=== PATIENT | female | born 1985 | race Hispanic/Latino ===

== ENCOUNTER 2019-02-04 11:38 | Emergency (ER) | payer OTHER, SELFPAY ==
[2019-02-04 11:47] VITALS: BP 134/78; PULSE 82; RESP 18; TEMP 36.7; O2SAT 98; BMI 38.6
--- NOTE | 2019-02-04 11:55 | DI.RAD.S_ITS ---
PROCEDURE: XR LUMBAR SPINE 2-3V INDICATIONS: back pain TECHNIQUE: 3 views of the lumbar spine were acquired. COMPARISON: None. FINDINGS: Bones: There are 5 lumbar-type vertebral bodies. The lowest intervertebral disk space is designated as L5-S1. The vertebral body heights are well-maintained without evidence to suggest an acute compression fracture. The bone mineralization is within normal limits. Straightening of the normal lumbar lordosis is present without spondylolisthesis. There are mild degenerative changes involving the lower lumbar facet joints. Intervertebral disc heights are relatively well-maintained throughout the lumbar spine. Soft tissues: The soft tissues of the imaged abdomen and pelvis are within normal limits. IMPRESSION: Mild degenerative changes of the lower lumbar spine. No fractures are evident. Dictated by: Foster Perez M.D. on 02/04/2019 at 11:42 Approved by: Foster Perez M.D. on 02/04/2019 at 11:43
--- NOTE | 2019-02-04 11:55 | DI.RAD.S_ITS ---
PROCEDURE: XR HIP W PEL IF DONE RT 2V INDICATIONS: pain TECHNIQUE: 2 views of the hip were acquired. COMPARISON: None. FINDINGS: Bones: No fractures or dislocations. No suspicious bony lesions. The visualized pelvic ring appears intact. A sclerotic lesion involving the proximal aspect of the iliac bone is identified, which likely represents a bone island. There are moderate degenerative changes of the pubis symphysis with associated parasymphyseal sclerosis in the erosive changes or degenerative cystic change at the level of the jointline. There may be mild degenerative changes of the lower lumbar spine. Soft tissues: No suspicious soft tissue calcifications or masses. IMPRESSION: 1. No acute fracture of the right hip. 2. Moderate degenerative changes of the pubis symphysis has appearances most suggestive of osteitis pubis. Please correlate clinically. Dictated by: Foster Perez M.D. on 02/04/2019 at 11:36 Approved by: Foster Perez M.D. on 02/04/2019 at 11:38
[2019-02-04] MEDS: LIDOCAINE PATCH 1 EACH ADH..PATCH TOP (12:18)
[2019-02-04] MEDS: CYCLOBENZAPRINE 10 MG TABLET PO (12:18)
[2019-02-04] MEDS: HYDROCODONE/ACET 5/325 TABLET 1 TAB PO ×2 (12:18→13:01)
[2019-02-04 13:12] VITALS: BP 113/70; PULSE 63; RESP 16; O2SAT 100
[2019-02-04] MEDS: KETOROLAC 60 MG/2 ML VIAL IM (14:26)
[2019-02-04 14:38] VITALS: BP 103/59; PULSE 61; RESP 18; O2SAT 98
--- NOTE | 2019-02-04 15:14 | ED_ITS ---
HPI - Back Pain/Injury <SUJATA Baugh- - Last Filed: 02/04/19 15:21> General Chief Complaint: Back Pain/Injury Stated Complaint: Hip and back pain Time Seen by Provider: 02/04/19 11:44 Source: patient and family Mode of arrival: Wheelchair Limitations: no limitations History of Present Illness HPI Narrative: The patient is a 33-year-old female nonsmoker with history of 3 sections who presents with a chief complaint of right hip pain and low back pain. She states it started in her groin 3 days ago and has been getting worse. She has taken a single dose of ibuprofen this morning with no improvement. She denies any fevers nausea vomiting diarrhea. She denies any chest pain, shortness of breath. She denies any falls or trauma. She states she had pain similar to this when she was several times, specially after a fall when she was . However this was 4 years ago. She denies any urinary symptoms. She denies any possibility of . The patient denies any incontinence of bowel, incontinence of bladder numbness in her groin Related Data Previous Rx's Medication Instructions Recorded hydrocodone-acetaminophen [[place]] 1 tab PO Q4-6H PRN #7 tab 02/04/19 ketorolac 10 mg PO TID PRN #15 tab 02/04/19 lidocaine 1 patch TOP DAILY PRN #15 each 02/04/19 Allergies Allergy/AdvReac Type Severity Reaction Status Date / Time Sulfa (Sulfonamide Allergy Verified 02/04/19 13:23 Antibiotics) Review of Systems <ADAM Baugh - Last Filed: 02/04/19 15:21> Review of Systems Narrative: GENERAL: Denies chills, fatigue, malaise, fever, sweats. HEENT: Denies sinus pain, ear pain, sore throat, difficulty swallowing, dizziness. RESPIRATORY: Denies dyspnea, cough, wheezing, hemoptysis, sputum. CARDIOVASCULAR: Denies chest pain, palpitations, orthopnea, edema, GASTROINTESTINAL: Denies nausea, vomiting, abdominal pain, diarrhea, constipation, melena. : Denies dysuria, frequency, incontinence, hematuria, urinary retention. MUSCULOSKELETAL: See HPI SKIN: Denies rash, skin lesions, or other NEUROLOGIC: Denies weakness, headache, numbness, change in speech, confusion, seizures, incoordination. PSYCHIATRIC: No concerning psychosocial issues. 12 point review of systems is negative except for those stated above PFSH <MYA Baugh - Last Filed: 02/04/19 15:21> Surgical History (Updated 02/04/19 @ 15:16 by MYA Baugh) History of 3 sections (Acute) Exam <MYA Baugh - Last Filed: 02/04/19 15:21> Narrative Exam Narrative: GENERAL: Obese female. Appears uncomfortable. HEAD: Atraumatic. Normocephalic. No temporal or scalp tenderness. EYES: Pupils equal round and reactive. Extraocular motions intact. No scleral icterus. No injection or drainage. ENT: Nose without bleeding, purulent drainage or septal hematoma. Throat without erythema, tonsillar hypertrophy or exudate. Uvula midline. Airway patent. NECK: Trachea midline. No JVD or lymphadenopathy. Supple, nontender, no meningeal signs. CARDIOVASCULAR: Regular rate and rhythm without murmurs, gallops, or rubs. RESPIRATORY: Clear to auscultation. Breath sounds equal bilaterally. No wheezes, rales, or rhonchi. GASTROINTESTINAL: Abdomen soft, non-tender, nondistended. No hepato- splenomegaly, or palpable masses. No guarding. EXTREMITIES: No clubbing, cyanosis, or edema. Strength is equal upper and lower extremities bilaterally. General pain to palpation right hip. BACK: Nontender without deformity or crepitance cervical and thoracic spine. Diffuse tenderness to lumbar spine palpation. NEURO: AOx3. Strength is equal upper and lower extremities bilaterally. Stable gait. Clear speech. Cranial nerves grossly intact. SKIN: No rash or erythema abrasion or laceration noted on lower back or right hip. Initial Vital Signs Initial Vital Signs: Vital Signs Temperature 98.0 F 02/04/19 11:47 Pulse Rate 82 02/04/19 11:47 Respiratory Rate 18 02/04/19 11:47 Blood Pressure 134/78 02/04/19 11:47 Pulse Oximetry 98 02/04/19 11:47 <Chika Jackson MD - Last Filed: 02/04/19 15:38> Initial Vital Signs Initial Vital Signs: Vital Signs Temperature 98.0 F 02/04/19 11:47 Pulse Rate 82 02/04/19 11:47 Respiratory Rate 18 02/04/19 11:47 Blood Pressure 134/78 02/04/19 11:47 Pulse Oximetry 98 02/04/19 11:47 Course <MYA Baugh - Last Filed: 02/04/19 15:21> Orders Ordered: ED Orders 02/04/19 11:55 XR hip w pel if done RT 2V Stat XR lumbar spine 2-3V Stat Discontinued Medications Hydrocodone Bitart/Acetaminophen ([place] 5/325) 1 tab PO NOW ONE Stop: 02/04/19 11:56 Last Admin: 02/04/19 12:18 Dose: 1 tab Documented by: DONOVAN Hydrocodone Bitart/Acetaminophen ([place] 5/325) 1 tab PO NOW ONE Stop: 02/04/19 12:55 Last Admin: 02/04/19 13:01 Dose: 1 tab Documented by: DONOVAN Cyclobenzaprine HCl (Flexeril) 10 mg PO NOW ONE Stop: 02/04/19 11:56 Last Admin: 02/04/19 12:18 Dose: 10 mg Documented by: DONOVAN Ketorolac Tromethamine (Toradol) 60 mg IM NOW ONE Stop: 02/04/19 14:22 Last Admin: 02/04/19 14:26 Dose: 60 mg Documented by: ABHILASH Lidocaine (Lidoderm) 1 each TOP NOW ONE Stop: 02/04/19 11:56 Last Admin: 02/04/19 12:18 Dose: 1 each Documented by: DONOVAN Vital Signs Vital signs: Vital Signs - 8 hr 02/04/19 11:47 02/04/19 13:12 02/04/19 14:38 Temperature 98.0 F Pulse Rate 82 63 61 Respiratory Rate 18 16 18 Blood Pressure 134/78 103/59 L Blood Pressure [Left Arm] 113/70 Pulse Oximetry 98 100 98 <Chika Jackson MD - Last Filed: 02/04/19 15:38> Orders Ordered: ED Orders 02/04/19 11:55 XR hip w pel if done RT 2V Stat XR lumbar spine 2-3V Stat Discontinued Medications Hydrocodone Bitart/Acetaminophen ([place] 5/325) 1 tab PO NOW ONE Stop: 02/04/19 11:56 Last Admin: 02/04/19 12:18 Dose: 1 tab Documented by: DONOVAN Hydrocodone Bitart/Acetaminophen ([place] 5/325) 1 tab PO NOW ONE Stop: 02/04/19 12:55 Last Admin: 02/04/19 13:01 Dose: 1 tab Documented by: DONOVAN Cyclobenzaprine HCl (Flexeril) 10 mg PO NOW ONE Stop: 02/04/19 11:56 Last Admin: 02/04/19 12:18 Dose: 10 mg Documented by: DONOVAN Ketorolac Tromethamine (Toradol) 60 mg IM NOW ONE Stop: 02/04/19 14:22 Last Admin: 02/04/19 14:26 Dose: 60 mg Documented by: ABHILASH Lidocaine (Lidoderm) 1 each TOP NOW ONE Stop: 02/04/19 11:56 Last Admin: 02/04/19 12:18 Dose: 1 each Documented by: DONOVAN Vital Signs Vital signs: Vital Signs - 8 hr 02/04/19 11:47 02/04/19 13:12 02/04/19 14:38 Temperature 98.0 F Pulse Rate 82 63 61 Respiratory Rate 18 16 18 Blood Pressure 134/78 103/59 L Blood Pressure [Left Arm] 113/70 Pulse Oximetry 98 100 98 MDM - Back Pain/Injury <MYA Baugh - Last Filed: 02/04/19 15:21> Lab Data Labs: Point of Care Testing Test Results Negative Urine Dip Bedside Urine Glucose Negative Bedside Urine Bilirubin - Negative Bedside Urine Ketone - Negative Urine Specific [place] 1.010 Bedside Urine Occult Blood + Bedside Urine pH 6.0 Bedside Urine Protein - Negative Bedside Urine Urobilinogen - Negative Bedside Urine Nitrite - Negative Imaging Data Lumbar spine x-ray: Radiologist's impression: Emma Jiang Z 33 F [address] [address] XRay Report Signed Patient: Emma Jiang ZMR#: [id number] : 1985Acct:[id number] Age/Sex: 33 / FDate of Service: 02/04/19 Loc: ED Accession Number: [id number] Procedure: XR lumbar spine 2-3V Ordering Provider: Leann Jones PROCEDURE: XR LUMBAR SPINE 2-3V INDICATIONS: back pain TECHNIQUE: 3 views of the lumbar spine were acquired. COMPARISON: None. FINDINGS: Bones: There are 5 lumbar-type vertebral bodies. The lowest intervertebral disk space is designated as L5-S1. The vertebral body heights are well-maintained without evidence to suggest an acute compression fracture. The bone mineralization is within normal limits. Straightening of the normal lumbar lordosis is present without spondylolisthesis. There are mild degenerative changes involving the lower lumbar facet joints. Intervertebral disc heights are relatively well-maintained throughout the lumbar spine. Soft tissues: The soft tissues of the imaged abdomen and pelvis are within normal limits. IMPRESSION: Mild degenerative changes of the lower lumbar spine. No fractures are evident. Dictated by: Foster Perez M.D. on 02/04/2019 at 11:42 Approved by: Foster Perez M.D. on 02/04/2019 at 11:43 Pelvis x-ray: Radiologist's impression: Emma Jiang Z 33 F 1985 [place] [address] XRay Report Signed Patient: Emma Jiang ZMR#: [id number] : 1985Acct:[id number] Age/Sex: 33 / FDate of Service: 02/04/19 Loc: ED Accession Number: [id number] Procedure: XR hip w pel if done RT 2V Ordering Provider: Leann Jones PROCEDURE: XR HIP W PEL IF DONE RT 2V INDICATIONS: pain TECHNIQUE: 2 views of the hip were acquired. COMPARISON: None. FINDINGS: Bones: No fractures or dislocations. No suspicious bony lesions. The visualized pelvic ring appears intact. A sclerotic lesion involving the proximal aspect of the iliac bone is identified, which likely represents a bone island. There are moderate degenerative changes of the pubis symphysis with associated parasymphyseal sclerosis in the erosive changes or degenerative cystic change at the level of the jointline. There may be mild degenerative changes of the lower lumbar spine. Soft tissues: No suspicious soft tissue calcifications or masses. IMPRESSION: 1. No acute fracture of the right hip. 2. Moderate degenerative changes of the pubis symphysis has appearances most suggestive of osteitis pubis. Please correlate clinically. Dictated by: Foster Perez M.D. on 02/04/2019 at 11:36 Approved by: Foster Perez M.D. on 02/04/2019 at 11:38 [facility] Narrative Medical decision making narrative: The patient is a 33-year-old female who presents with a chief complaint of hip and back pain. She has no concerning neurological findings and has no history of trauma. Her pain was treated in the emergency department Flexeril, [place], lidocaine and eventually Toradol when she had hit the appropriate time since her ibuprofen dosing this morning. Her x- rays indicated osteitis pubis at this point in time. This does have clinical correlation with her exam, and correlates with her history of multiple pregnancies. I did give her prescriptions of Toradol, strict instructions to not combine with any other NSAIDs as well as [place] upon discharge. I discussed the [place] can be constipating and sedating. The patient does not have any fevers nausea vomiting or diarrhea and the pain was not sudden onset, helping rule out osteomyelitis. The gradual onset of her pain does correlate while of osteitis pubis. I encouraged follow-up with her primary care provider discussed that she may need cortisone injections etc in the future. Patient has been state understanding of return precautions as well as follow-up care. Discussed coming back to the emergency department for any acute concerns such as incont inence of bowel, incontinence bladder or saddle anesthesia. Patient has been of no questions or concerns upon discharge. <Chika Jackson MD - Last Filed: 02/04/19 15:38> Lab Data Labs: Point of Care Testing Test Results Negative Urine Dip Bedside Urine Glucose Negative Bedside Urine Bilirubin - Negative Bedside Urine Ketone - Negative Urine Specific [place] 1.010 Bedside Urine Occult Blood + Bedside Urine pH 6.0 Bedside Urine Protein - Negative Bedside Urine Urobilinogen - Negative Bedside Urine Nitrite - Negative Discharge Plan Departure Patient Disposition: Home Clinical Impression: Osteitis pubis Discharge Date/Time: 02/04/19 14:38 Instructions: Help for Hip Pain, How To Perform RICE (Rest, Ice, Compress, Elevate), DI for Hip Pain Activity Restrictions/Additional Instructions: Your x-rays indicate no fracture, but are indicative of osteitis pubis. This is not infectious inflammation of the pubic bone and surrounding ligaments and tendons. I have given you prescriptions for anti-inflammatories as well as [place]. Do not combine other NSAIDs such as ibuprofen and Aleve with the ketorolac. [place] can be constipating and sedating. Do not take and drive her combined with any other sedating agents. I recommended course of rest and ice. Please follow up with primary care provider in the next few days. Treatment for this can include physical therapy joint injections etc. Prescriptions: New ketorolac 10 mg tablet 10 mg PO TID PRN (Reason: pain) Qty: 15 RF: 0 hydrocodone-acetaminophen [[place]] 5-325 mg tablet 1 tab PO Q4-6H PRN (Reason: pain) Qty: 7 RF: 0 lidocaine 5 % adhesive patch,medicated 1 patch TOP DAILY PRN (Reason: pain) Qty: 15 RF: 0 Referrals: [employer] [facility] [Provider Group]
== END 2019-02-04 14:38 | disposition home or self-care (01) ==
PROVIDERS: Emergency Provider Nurse Practitioner Family
DX: M86.9 Osteomyelitis, unspecified (principal)
CPT/HCPCS: 72100; 73502; 81003; 81025; 96372; 99282; 99284; J1885